=== PATIENT | female | born 2000 | race Asian ===

== ENCOUNTER → 2023-07-30 11:25 | Outpatient (REF) | payer OTHER, SELFPAY ==
[2023-07-31 19:26] LABS: Hepatitis B Surface Antibody Positive
[2023-08-02 00:21] LABS: Quantiferon Mitogen minus NIL 8.49 IU/mL; Quantiferon NIL 0.04 IU/mL; Quantiferon Plus TB1 minus NIL 0.03 IU/mL (0.00-0.34); Quantiferon Plus TB2 minus NIL 0.02 IU/mL (0.00-0.34); Quantiferon TB Gold Plus Negative (Negative)
== END ==
LOC: OHS 11:25
PROVIDERS: ATTENDING PHYSICIAN Nurse Practitioner Family
DX: Z23 Encounter for immunization (principal)
CPT/HCPCS: 36415; 86480; 86706